=== PATIENT | male | born 2000 | race Caucasian/White ===

== ENCOUNTER 2022-05-12 15:11 | Observation (INO) | payer BC, SELFPAY ==
[2022-05-12 15:14] VITALS: BP 133/78; PULSE 81; RESP 18; TEMP 36.6; O2SAT 100
--- NOTE | 2022-05-12 15:30 | DI.CT_ITS ---
Exam(s) CT CHEST/ABD/PEL W EXAM: CT CHEST/ABD/PEL W CLINICAL HISTORY: trauma, ski accident, right sided chest abd pain. TECHNIQUE: Imaging Protocol: Axial computed tomography images with coronal and sagittal reformatted images were created and reviewed CONTRAST MATERIAL: Intravenous: Omnipaque 350 Contrast volume:100 ml Oral: no COMPARISON: No exams were available for comparison FINDINGS: CHEST: Tracheobronchial tree: Patent where visualized. Mediastinum and Aubree: No dominant adenopathy or fluid collection. Pulmonary parenchyma: No consolidation or dominant measurable mass. Pleura: No effusion or pneumothorax. Lymph nodes: Within normal limits. Aorta: Thoracic portion non-dilated. Heart: Normal size. Bones: Unremarkable for age. No lytic or blastic lesions. No rib or spine fracture visible. ABDOMEN: Liver: Normal density. No measurable mass. No visible laceration. Gallbladder and biliary tract: No radiodense calculus or dilation. Pancreas: Normal density, no abnormal calcifications or inflammatory process. Spleen: Normal. Kidneys: Normal size, contour and axis. No radiodense stones or obstructive uropathy. Small cyst rig ht kidney. No suspicious masses seen. No laceration visible. Adrenal glands: No masses seen. Aorta: Abdominal portion non-dilated. Lymph nodes: Within normal limits. Soft tissues: Unremarkable. Bones: Nondisplaced right transverse process fracture L3. Schmorl's nodes at multiple levels. PELVIS: Bladder: Symmetric distention, no gross wall thickening. Bowel: No obstruction or bowel wall thickening. Increased stool in rectum. Appendix normal. Peritoneal cavity: No ascites, collection or mesenteric inflammatory response. Bones: Unremarkable for age.. Reproductive organs: Within normal limits. IMPRESSION: Nondisplaced right transverse process fracture L3. No additional fractures. No evidence rib fractur e or pneumothorax. No internal organ injury visible. RADIATION DOSE DELIVERED: 1,566.43mGy.cm Total DLP DATA REPOSITORY: All CT scans at this facility are submitted to the National Radiology Data Registry (NRDR) Dose Index Registry (DIR) with the [employer] (A[employer]). RADIATION OPTIMIZATION: All CT scans at this facility use at least one of these dose optimization te chniques: automated exposure control; mA and/or kV adjustment per patient size (includes targeted exa ms where dose is matched to clinical indication); or iterative reconstruction.
[2022-05-12 15:41] LABS: Bilirubin Negative (Negative); Blood Negative (Negative); Clarity Clear (Clear); Glucose Negative (Negative); Ketones Negative (Negative); Leukocyte Esterase Negative (Negative); Nitrite Negative (Negative); Specific Gravity 1.025 (1.005-1.025); Urobilinogen 0.2 EU/dL (Up TO 0.2)
--- NOTE | 2022-05-12 15:41 | ED.GENADUL_ITS ---
Discharge Plan Disposition Patient Disposition: Admit to [facility] Condition: Stable Discharge Details Chief Complaint: Trauma Clinical Impression: Blunt trauma to abdomen, Closed fracture of spinous process of lumbar vertebra, Abnormal renal finding Primary Care Provider: None,None ED Provider: Colt Horne Home Meds and New Rx's Prescriptions: No Action No Known Home Meds Medical Decision Making 21-year-old male fell at skiing, slid on his side into a tree line, struck a tree on his right side with right chest and right abdomen, abrasion overlying right hip/right lower quadrant, abdomen soft nontender nondistended, bedside FAST exam negative for free intraperitoneal fluid; however given mechanism of injury will obtain CT chest abdomen pelvis to assess for any thoracic or abdominal trauma. Obtain basic labs. At this time patient does not want any analgesia. Patient is hemodynamically stable alert and oriented GCS 15. Disposition pending labs and results 20: 13 patient was comfortably hemodynamically stable. CT chest abdomen pelvis showing L3's spinous process fracture, possible renal cyst versus small parenchymal lacerations to right kidney, no surrounding free fluid or stranding, patient is nonperitoneal hemodynamically stable. Discussed case with Dr. Kim of trauma surgery at [facility] who reviewed image and case with me believes p atient is stable to be observed here at our facility with repeat H&H and UA in the morning if signs of hemorrhage or hematuria to rediscuss transfer to trauma center. Discussed case with hospitalist while as well as general surgeon Dr. Mosley who has accepted patient for observation. HPI General Date/Time Provider Initiated Documentation: 05/12/22 15:25 . HPI Narrative: 21-year-old male helmeted ski year fell onto his side slid over a ridge into a tree line, struck his chest and right abdomen on a tree, no loss of consciousness. Pain to chest wall and right abdomen. Related Data Home Medications Medication Instructions Recorded Confirmed Unknown [No Known Home Meds] 05/12/22 05/12/22 Allergies Allergy/AdvReac Type Severity Reaction Status Date / Time No Known Allergies Allergy Unverified 05/12/22 15:16 General Stated Complaint: Trauma JEFFERSON: 2 Review of Systems Narrative: Review of Systems Constitutional: negative Eyes: negative ENT: negative Cardiovascular: negative Respiratory: negative Gastrointestinal: Abdominal pain : negative Musculoskeletal: Chest wall pain Skin: negative Neurologic: negative Psych: negative PFSH All Active Problems (Updated 05/12/22 @ 20:16 by Colt Horne MD) Blunt trauma to abdomen (Acute) Closed fracture of spinous process of lumbar vertebra (Acute) Abnormal renal finding (Acute) Social History Smoking/Tobacco Use Status: Never Smoking risk assessment performed?: Yes Drug use: Never Substance use type: does not use Do you feel safe at home: Yes Do you feel safe in your relationship?: Yes Exam Narrative Exam Narrative: Physical Examination General: alert, awake, cooperative, resting comfortably, no acute distress HEENT: normocephalic, atraumatic; PERRL, EOM intact, conjunctiva normal; no nasal discharge; moist mucous membranes, oral and pharyngeal mucosa normal, tolerating secretions Neck: supple, trachea midline; full ROM Chest: normal to inspection Respiratory: normal respiratory effort, speaking in full sentences, clear to auscultation, no wheezing, rales or rhonchi Cardiac: regular rate, regular rhythm, S1S2 intact, no murmurs rubs or gallops GI: abdomen soft, non-tender, non-distended; no palpable mass or hepatosple nomegaly; superficial abrasion right hip/right lower quadrant Skin: no lesions, rashes or trauma appreciated Neuro: AAOx3, normal speech, moving all extremities Extremities: Moving all extremities no signs of trauma or deformity, pelvis stable Psych: Appropriate mood and affect Course Vital Signs Vital signs: Vital Signs Temperature 36.6 C 05/12/22 15:14 Pulse 81 05/12/22 15:14 Respiratory Rate 18 05/12/22 15:14 Blood Pressure 133/78 05/12/22 15:14 Pulse Oximetry 100 05/12/22 15:14 Temperature 36.6 C 05/12/22 15:14 Temperature Source Temporal Artery Scan 05/12/22 15:14 Pulse 81 05/12/22 15:14 Respiratory Rate 18 05/12/22 15:14 Respiratory Effort 05/12/22 15:27 Blood Pressure 133/78 05/12/22 15:14 Blood Pressure Position Sitting 05/12/22 15:14 Pulse Oximetry 100 05/12/22 15:14 Oxygen Delivery Method Room Air 05/12/22 15:14 Oxygen Flow Rate 0 05/12/22 15:14 Pain Level 7 05/12/22 15:14 PAWSS Have you Been Recently Intoxicated or Drunk Within the Last 30 days?: No Have you Ever Experienced Previous Episodes of Alcohol Withdrawal?: No Have you ever Experienced Withdrawal Seizures?: No Have you ever Experienced Delirium Tremens(DT)s?: No Have you ever undergone Alcohol Rehabilitation Treatment (i.e, inpt ot outpatient treatment programs)?: No Have you ever Experienced Blackouts?: No Have you ever Combined Alcohol with other Downers within the last 90 days?: No Have you ever Combined Alcohol with any other Substance of Abuse during the last 90 days?: No Positive Blood Alcohol level on Presentation? [PCS.BAL]: No Evidence of Increased Autonomic Activity (i.e. HR>120, tremor, sweating, agitation, nausea)?: No Result: 0
[2022-05-12 15:53] LABS: Epithelial Cells Rare HPF (Negative); RBC 0-2 HPF (0-2); WBC 0-2 HPF (0-5)
[2022-05-12 15:54] LABS: Bacteria Negative HPF (Negative); C & S Indicated? No; Casts Negative LPF (Negative); Crystals Negative HPF (Negative); Mucus Trace (Negative)
[2022-05-12 16:00] LABS: Abs Immature Grans 0.08 10^3/uL (0.0-0.06); Absolute Basophil Count 0.03 10^3/uL (0.0-0.2); Absolute Lymphocyte Count 0.81 10^3/uL (1.2-3.4); Absolute Monocyte Count 0.95 10^3/uL (0.1-0.8); Basophils % 0.2; Eosinophils % 0.2; HCT 47.3 % (40.0-50.0); HGB 16.1 g/dL (13.5-17.5); Immature Grans % 0.6; Lymphocytes % 6.4; MCH 30.4 pg (27.0-33.0); MCV 89 fL (80-95); MPV 12.1 fL (8.0-11.0); Monocytes % 7.5; Neutrophils % 85.1; Platelet Count 191 10^3/uL (130-400); RBC 5.29 10^6/uL (4.36-5.78); RDW 12.5 % (11.8-14.1); WBC 12.69 10^3/uL (4.4-10.8)
[2022-05-12 16:01] LABS: Absolute Eosinophil Count 0.03 10^3/uL (0.0-0.7)
[2022-05-12 16:13] LABS: ALT 30 U/L (16-63); AST 26 U/L (15-37); Albumin 4.5 g/dL (3.4-5.0); Alkaline Phosphatase 71 U/L (46-116); Anion Gap 5.5 mmol/L (3-11); BUN 16 mg/dL (7-18); Bilirubin, Total 0.5 mg/dL (0.2-1.0); CO2 33.5 mmol/L (21.0-32.0); CREATININE 1.2 mg/dL (0.70-1.30); Calcium 9.2 mg/dL (8.5-10.1); Chloride 105 mmol/L (98-107); Estimated GFR 87.69 (mL/min/1.73m2); Glucose 102 mg/dL (74-106); Potassium 3.9 mmol/L (3.5-5.1); Sodium 144 mmol/L (136-145); Total Protein 7.8 g/dL (6.4-8.2)
[2022-05-12] MEDS: Omnipaque 350 MG/ML 100 ML BTL IJ (16:13)
[2022-05-12] MEDS: Normal Saline - Diluent 50 ML VIAL IJ (16:13)
[2022-05-12] MEDS: Normal Saline Flush 10 ML SYR IVP ×2 (16:14→22:01)
[2022-05-12 17:13] VITALS: BP 135/72; PULSE 81; RESP 19; TEMP 37.1; O2SAT 100
--- NOTE | 2022-05-12 17:17 | DI.VRAD_ITS ---
Addendum created by Ren Castro MD on 05/12/2022 5:40:51 PM EST: THIS REPORT CONTAINS FINDINGS THAT MAY BE CRITICAL TO PATIENT CARE. The findings were verbally communicated via telephone conference with Colt Horne at 5:40 PM EST on 05/12/2022. The findings were acknowledged and understood. Initial report created on 05/12/2022 5:16:32 PM EST: PROCEDURE INFORMATION: Exam: CT Chest With Contrast; Diagnostic Exam date and time: 05/12/2022 4:06 PM Age: 21 years old Clinical indication: Other: Trauma, skii accident, right sided chest pain TECHNIQUE: Imaging protocol: Diagnostic computed tomography of the chest with contrast. Radiation optimization: All CT scans at this facility use at least one of these dose optimization techniques: automated exposure control; mA and/or kV adjustment per patient size (includes targeted exams where dose is matched to clinical indication); or iterative reconstruction. Contrast material: OMNIPAQUE 350; Contrast volume: 100 ml; Contrast route: INTRAVENOUS (IV); COMPARISON: No relevant prior studies available. FINDINGS: Lungs: No the evidence of pulmonary contusion. There is no evidence of focal pulmonary consolidation. No evidence of pulmonary parenchymal inflammatory changes. There is no evidence of pulmonary masses. Pleural spaces: There is no evidence of pneumothorax. There are no pleural effusions present. Heart: The cardiac structures are normal. Mediastinal space: The mediastinal structures are normal, no evidence of mediastinal hematoma. Lymph nodes: There is no evidence of lymphadenopathy. Vasculature: The pulmonary arteries are normal in caliber. No evidence of acute pulmonary embolism. The aorta and great vessels appear normal. No evidence of aortic dissection. No evidence of contrast extravasation to suggest major vascular injury. Intraperitoneal space: Please see abdominal CT. Bones/joints: The spine, sternum, ribs, and pectoral girdles show no evidence of acute abnormality. Soft tissues: There are no soft tissue masses or fluid collections. IMPRESSION: 1. No evidence of acute trauma to the thorax. 2. No evidence of pulmonary embolism. 3. No active cardiopulmonary disease. PROCEDURE INFORMATION: Exam: CT Abdomen And Pelvis With Contrast Exam date and time: 05/12/2022 4:06 PM Age: 21 years old Clinical indication: Other: Trauma, skii accident, right sided chest pain TECHNIQUE: Imaging protocol: Computed tomography of the abdomen and pelvis with contrast. Radiation optimization: All CT scans at this facility use at least one of these dose optimization techniques: automated exposure control; mA and/or kV adjustment per patient size (includes targeted exams where dose is matched to clinical indication); or iterative reconstruction. Contrast material: OMNIPAQUE 350; Contrast volume: 100 ml; Contrast route: INTRAVENOUS (IV); COMPARISON: No relevant prior studies available. FINDINGS: Liver: The liver is mildly enlarged at 17 cm. There are no focal liver lesions present. There is no evidence of intrahepatic or extrahepatic biliary ductal dilation. No evidence of laceration of the liver. Gallbladder and bile ducts: The gallbladder is normal. There is no cholelitiasis, wall thickening or pericholecystic fluid to suggest cholecystitis. Pancreas: The pancreas is normal. Spleen: The spleen is enlarged but otherwise normal. No evidence of laceration of the spleen. Adrenal glands: The adrenal glands are normal. Kidneys and ureters: There is a 10 x 22 mm right renal cyst present within the lower pole the right kidney. A small grade 1 intraparenchymal renal laceration cannot be totally excluded but is less likely. There is a 5 mm cyst present within the upper to mid pole of the left kidney. A tiny grade 1 intraparenchymal renal laceration cannot be totally excluded but is less likely. The kidneys are otherwise normal. Stomach and bowel: No evidence of duodenal hematoma. There is no evidence of intestinal obstruction. No diverticulosis is present. There is mild increased colonic fecal content. The colon is nondilated. These findings suggest a mild degree of constipation. Clinical correlation recommended. Appendix: A normal appendix is identified. There is no evidence of distention or periappendiceal inflammation to suggest appendicitis. Intraperitoneal space: No evidence of free fluid within the abdomen to suggest hemoperitoneum. There is no free intraperitoneal air. There are no soft tissue masses or fluid collections. No evidence of retroperitoneal hematoma. Vasculature: The aorta is normal without evidence of significant atherosclerosis or aneurysmal disease. No evidence of arterial dissection. No evidence of extravasation of contrast to suggest major vascular injury. The peripheral arterial vascular system visualized is otherwise unremarkable. The portal venous system visualized is unremarkable. The venous system visualized is unremarkable. Lymph nodes: There is no evidence of lymphadenopathy. Urinary bladder: The bladder is normal. Reproductive: The prostate is unremarkable for age. Bones/joints: There is a fracture of the right transverse process of the 3rd lumbar vertebral body. No other acute spinal fractures are identified. There are probable chronic Schmorl's node like endplate compressions involving T10, T11, T12, L1, L2 and L3. Soft tissues: The extra-abdominal soft tissues are normal. There appears to be an intramuscular contusion/hematoma involving the right external and internal oblique muscles. IMPRESSION: 1. There is a 10 x 22 mm right renal cyst present within the lower pole the right kidney. A small grade 1 intraparenchymal renal laceration cannot be totally excluded but is less likely. 2. There is a 5 mm cyst present within the upper to mid pole of the left kidney. A tiny grade 1 intraparenchymal renal laceration cannot be totally excluded but is less likely. 3. There appears to be an intramuscular contusion/hematoma involving the right external and internal oblique muscles. 4. There is a fracture of the right transverse process of the 3rd lumbar vertebral body. No other acute spinal fractures are identified. 5. There are probable chronic Schmorl's node like endplate compressions involving T10, T11, T12, L1, L2 and L3. 6. Hepatosplenomegaly. Dictated and Authenticated by: Ren Castro MD. Ordering:JORDAN Gregory MD
[2022-05-12 19:48] VITALS: BP 109/77; PULSE 91; RESP 18; TEMP 36.9; O2SAT 99
--- NOTE | 2022-05-12 20:22 | HPE_ITS ---
Date of service: 05/12/22 Time of Service: 20:23 Assessment and Plan Assessment and plan (1) Blunt trauma to abdomen: Status: Acute Assessment and plan: Treat pain Repeat CBC in the morning Reassess for hematuria (2) Closed fracture of spinous process of lumbar vertebra: Status: Acute Assessment and plan: Treat pain History of Present Illness History of Present Illness Chief Complaint: right back pain Narrative: Devendra is a 21 year old male who was skiing when he struck a tree. He felt pain in his lower back. He went to the emergency department. Work-up demonstrated a right-sided L3 transverse process fracture, as well as right sided renal cysts, that raise the possibility of a blunt renal injury as well. He had no evidence of hematuria. He was admitted for observation Review of Systems Constitutional Constitutional: Reports body ache(s), Denies fever(s) and Denies weakness Eyes Eyes: Reports system reviewed and no additional complaints, except as documented ENT Ears, Nose, Mouth, and Throat: Reports system reviewed and no additional complaints, except as documented Cardiovascular Cardiovascular: Denies chest pain and Denies dyspnea Respiratory Respiratory: Denies chest congestion, Denies cough and Denies dyspnea Gastrointestinal Gastrointestinal: Denies abdominal pain, Denies nausea and Denies vomiting Genitourinary Genitourinary: Denies hematuria, Denies difficulty urinating, Reports flank pain (Right), Denies urinary hesitancy, Denies urinary incontinence and Denies urinary urgency Musculoskeletal Musculoskeletal: Reports back pain, Denies numbness, Denies radiating pain into limb and Reports stiffness Neurologic Neurologic: Reports system reviewed and no additional complaints, except as documented, Denies numbness and Denies weakness Psychiatric Psychiatric: Reports system reviewed and no additional complaints, except as documented Hematologic/Lymphatic Hematologic/Lymphatic: Denies easy bleeding and Denies easy bruising PFSH All Active Problems Blunt trauma to abdomen (Acute) Closed fracture of spinous process of lumbar vertebra (Acute) Abnormal renal finding (Acute) Social History Smoking/Tobacco Use Status: Never Smoking risk assessment performed?: Yes Drug use: Never Substance use type: does not use Do you feel safe at home: Yes Do you feel safe in your relationship?: Yes Meds Allergies and Home Medications Allergies Allergy/AdvReac Type Severity Reaction Status Date / Time No Known Allergies Allergy Unverified 05/12/22 15:16 Home Medications Medication Instructions Recorded Confirmed Type Unknown [No Known Home Meds] 05/12/22 05/12/22 History Exam Const General: cooperative, healthy appearing and comfortable [facility] Head: normal to inspection, normocephalic and atraumatic Eyes General: appearance normal, both eyes and all related structures Alignment and Position: alignment normal Conjunctivae: conjunctivae normal Neck Neck: normal visual inspection, full ROM, trachea midline, supple and nontender Chest Chest: normal inspection of the chest and no crepitus Resp Effort & Inspection: normal respiratory effort and able to speak in complete sentences Auscultation: clear to auscultation bilaterally Cardio Jugular venous pressure: no JVD Rate: regular rate Rhythm: regular rhythm Heart Sounds: S1 normal and S2 normal GI Inspection: normal to inspection and non-distended Palpation: soft, no guarding and nontender Percussion: normal to percussion Auscultation: normal bowel sounds Back/Spine/Pelvis Thoracic/Lumbar Spine: thoracic and lumbar spine normal to inspection, No thoraco-lumbar ROM normal (Lower back pain), No thoraco-lumbar spasm and lumbar spinal tenderness Pelvis: no pain with anterior-posterior compression Neuro General: patient alert, patient awake and patient oriented x3 Cognition: normal cognition Extrem General: normal to inspection and full ROM Right lower extremity: full ROM; no edema Left lower extremity: full ROM; no edema Results Imaging Abdomen CT scan report/results: report reviewed and image reviewed CT scan - chest: report reviewed and image reviewed CT scan - pelvis: report reviewed and image reviewed Labs Result diagrams: 05/13/22 06:06 05/12/22 15:30 Labs: Laboratory Results - last 24 hr 05/12/22 05/12/22 05/12/22 15:19 15:30 15:30 WBC 12.69 H RBC 5.29 Hgb 16.1 Hct 47.3 MCV 89 MCH 30.4 MCHC 34.0 RDW 12.5 Plt Count 191 MPV 12.1 H Immature Gran % 0.6 Neutrophils % 85.1 Lymphocytes % 6.4 Monocytes % 7.5 Eosinophils % 0.2 Basophils % 0.2 Nucleated RBC % 0.0 Absolute Neutrophils 10.80 H Absolute Lymphocytes 0.81 L Absolute Monocytes 0.95 H Absolute Eosinophils 0.03 Absolute Basophils 0.03 Sodium 144 Potassium 3.9 Chloride 105 Carbon Dioxide 33.5 H Anion Gap 5.5 BUN 16 Creatinine 1.2 Est GFR (CKD-EPI 2020) 87.69 Glucose 102 Calcium 9.2 Total Bilirubin 0.5 AST 26 ALT 30 Alkaline Phosphatase 71 Total Protein 7.8 Albumin 4.5 Urine Color Yellow Urine Clarity Clear Urine pH 7.0 Ur Specific [place] 1.025 Urine Protein 30 H Urine Ketones Negative Urine Blood Negative Urine Nitrite Negative Urine Bilirubin Negative Urine Urobilinogen 0.2 Ur Leukocyte Esterase Negative Urine RBC 0-2 Urine WBC 0-2 Ur Epithelial Cells Rare Urine Crystals Negative Urine Bacteria Negative Urine Casts Negative Urine Mucus Trace Ur Culture Indicated? No Urine Glucose Negative Last Vital Signs Temp 98.4 F 05/12/22 19:48 Pulse 91 H 05/12/22 19:48 Resp 18 05/12/22 19:48 BP 109/77 05/12/22 19:48 Pulse Ox 99 05/12/22 19:48 PAWSS Have you Been Recently Intoxicated or Drunk Within the Last 30 days?: No Have you Ever Experienced Previous Episodes of Alcohol Withdrawal?: No Have you ever Experienced Withdrawal Seizures?: No Have you ever Experienced Delirium Tremens(DT)s?: No Have you ever undergone Alcohol Rehabilitation Treatment (i.e, inpt ot outpatient treatment programs)?: No Have you ever Experienced Blackouts?: No Have you ever Combined Alcohol with other Downers within the last 90 days?: No Have you ever Combined Alcohol with any other Substance of Abuse during the last 90 days?: No Positive Blood Alcohol level on Presentation? [PCS.BAL]: No Evidence of Increased Autonomic Activity (i.e. HR>120, tremor, sweating, agitation, nausea)?: No Result: 0
[2022-05-12 21:24] VITALS: BP 139/69; PULSE 82; RESP 20; O2SAT 97
[2022-05-12 21:24] LABS: Source Nasal/Nares
[2022-05-12] MEDS: Acetaminophen 325 MG TAB 650 MG PO (21:50)
[2022-05-12] MEDS: Lidocaine 5% Patch 1 PATCH TP (21:51)
[2022-05-12 21:56] LABS: COVID-19 PCR Negative (Negative)
[2022-05-12] MEDS: Enoxaparin 40 MG/0.4 ML SYR SC (22:02)
[2022-05-12 22:05] VITALS: BP 138/82; PULSE 93; RESP 18; TEMP 36.8; O2SAT 93
[2022-05-13 05:31] VITALS: BP 134/75; PULSE 75; RESP 16; TEMP 36.7; O2SAT 99
[2022-05-13 06:27] LABS: Abs Immature Grans 0.03 10^3/uL (0.0-0.06); Absolute Basophil Count 0.03 10^3/uL (0.0-0.2); Absolute Eosinophil Count 0.05 10^3/uL (0.0-0.7); Absolute Lymphocyte Count 2.14 10^3/uL (1.2-3.4); Absolute Monocyte Count 0.92 10^3/uL (0.1-0.8); Absolute Neutrophil Count 5.09 10^3/uL (1.2-6.7); Basophils % 0.4; Eosinophils % 0.6; HCT 47.1 % (40.0-50.0); HGB 16.5 g/dL (13.5-17.5); Immature Grans % 0.4; Lymphocytes % 25.9; MCH 30.8 pg (27.0-33.0); MCV 88 fL (80-95); MPV 11.9 fL (8.0-11.0); Monocytes % 11.1; Neutrophils % 61.6; Platelet Count 189 10^3/uL (130-400); RBC 5.35 10^6/uL (4.36-5.78); RDW 12.8 % (11.8-14.1); RDW-SD 41.1 fL; WBC 8.26 10^3/uL (4.4-10.8)
[2022-05-13 07:31] VITALS: BP 125/73; PULSE 73; RESP 16; TEMP 36.5; O2SAT 97
--- NOTE | 2022-05-13 08:55 | W.PM.DS.N ---
Date of service: 05/13/22 Time of Service: 08:56 DS: Diagnosis Discharge Diagnosis (1) Blunt trauma to abdomen: Status: Acute Asessment and Plan: You sustained a right sided vertebral transverse process fracture. -follow discharge instructions You have either a Grade 1 kidney injury or a simple renal cyst -neither condition requires any specific treatment. Garde 1 renal injuries heal on their own with extremely low complication rates and renal cysts are not dangerous and require no changes to any of your [facility] healthcare. Discharge Plan Disposition Patient Disposition: Home Condition: Good Discharge Details Reason For Visit: renal trauma Admit Date/Time: 05/12/22 20:19 Admit Provider: Ede Mosley Attending Provider: Ede Mosley Primary Care Provider: None,None Hospital Course Hospital Course: Yovani is a 21 year old male who crashed into a tree while skiing. He underwent torso imaging that demonstrated a right sided L3 transverse process fracture and a possible grade 1 right kidney injury with renal cyst. He did fine overnigth. He had no hematuria. Hgb was normal and stable the following morning. I discharged him home with instructions. Home Meds and New Rx's Prescriptions: No Action No Known Home Meds Discharge Instructions Instructions: Transverse Process Fracture (DC) Additional Instructions: 1. Do not drive, drink alcohol, operate machinery, make critical decisions, or do activities that require coordination or balance for 24 hours. 2. You will experience pain in your lower back for several weeks. Over the counter Tylenol and ibuprofen will help with that discomfort. Topical pain patches (like lidocaine patches) our ointments (like icey hot) can be applied to your lower back. CBD ointment is also safe to use if you find it helpful. 3. You might notice a pink tinge to your urine. That is okay. Give it a few rounds to clear. If it does not clear within 48 hours, contact my office. If you notice blood clots in your urine (like red jello), contact my office for an appointment. 4. You should refrain from vigorous actives (like skiing) until your back is pain free. 5. Always wear a helmet while skiing. 6. You should begin lower back exercise training and active stretching within 1 week. 7. Go directly to the emergency room if you notice any of the following: Develop chills (warm to touch), or if you have a thermometer and your temperature is above 101 Difficulty breathing or difficultly swallowing Persistent vomiting Severe abdominal pain, other than gas cramps Severe chest pain Black, tarry stools Any bleeding ? exceeding one tablespoon 8. Call your physician if the site where your intravenous was started becomes red, swollen, painful, and warm to touch. 9. Your physician has reviewed your pre-procedure medications. Please continue to take those medications as previously ordered. You will be given specific information/education regarding any changes to your medications before leaving. Stand Alone Forms: Nursing Discharge Form Activity:: Activity as Tolerated Equipment/Supplies:: No Equipment Needed Diet:: As Tolerated Discharge Orders Discharge Orders: Discharge Order (Routine); Ordered 05/13/22 Ordered By: Ede Mosley DS: Summary Time Spent with Patient providing and/or coordinating discharge services: Less than 30 minutes Status at Discharge Functional status at discharge: independent ambulation Overall status at discharge: patient is progressing back to baseline Mental Status: mental status grossly normal Speech and Movement: speech and movement normal Mood: congruent mood Affect: normal affect Exam Const General: cooperative, healthy appearing and comfortable Orientation: awake and oriented x3 Eyes General: appearance normal, both eyes and all related structures Conjunctivae: conjunctivae normal Sclera: sclerae normal Neck Neck: normal visual inspection, full ROM, trachea midline, supple and nontender Resp Effort & Inspection: normal respiratory effort and able to speak in complete sentences Cardio Jugular venous pressure: no JVD Rate: regular rate GI Inspection: non-distended Palpation: soft, no guarding, no hernias and nontender Auscultation: normal bowel sounds Back/Spine/Pelvis Thoracic/Lumbar Spine: pain with thoraco-lumbar ROM and lumbar spinal tenderness Skin General skin exam: normal turgor Neuro General: patient alert, patient awake and patient oriented x3 Cognition: normal cognition Extrem Right lower extremity: no edema Left lower extremity: no edema Psych Mental Status: mental status grossly normal Speech and Movement: speech and movement normal Mood: congruent mood Affect: normal affect DS: Data Vitals/I&O Vitals and I&O: Vital Signs Temperature 97.7 F 05/13/22 07:31 Temperature Source Tympanic 05/13/22 07:31 Pulse 73 05/13/22 07:31 Pulse Rhythm Regular 05/12/22 22:06 Respiratory Rate 16 05/13/22 07:31 Respiratory Effort 05/13/22 05:30 Respiratory Depth Normal 05/13/22 05:30 Respiratory Pattern Normal 05/13/22 05:30 Blood Pressure 125/73 05/13/22 07:31 Blood Pressure Position Sitting 05/12/22 15:14 Pulse Oximetry 97 05/13/22 07:31 Oxygen Delivery Method Room Air 05/13/22 07:31 Oxygen Flow Rate 0 05/13/22 07:31 Pain Level 2 05/13/22 07:31 Intake & Output 05/12/22 05/12/22 05/13/22 11:59 23:59 11:59 Output Total 400 / 400 500 / 500 Balance -400 / -400 -500 / -500 Weight 233 lb 11.04 oz Output: Urine 400 / 400 500 / 500 Other: Urine Color Light Charito Straw Urine Appearance Clear Urine Odor Normal Comment 400mls at this time emptied from the patients toilet insert. i did provide him with a urinal at bedside. Void x1 in the toilet. Voiding Methods Toilet Data Completed and Pending Labs on day of discharge: Labs from last 24 hours 05/13/22 05/12/22 05/12/22 06:06 21:15 15:30 WBC 8.26 12.69 H RBC 5.35 5.29 Hgb 16.5 16.1 Hct 47.1 47.3 MCV 88 89 MCH 30.8 30.4 MCHC 35.0 34.0 RDW 12.8 12.5 Plt Count 189 191 MPV 11.9 H 12.1 H Immature Gran % 0.4 0.6 Neutrophils % 61.6 85.1 Lymphocytes % 25.9 6.4 Monocytes % 11.1 7.5 Eosinophils % 0.6 0.2 Basophils % 0.4 0.2 Nucleated RBC % 0.0 0.0 Absolute Neutrophils 5.09 10.80 H Absolute Lymphocytes 2.14 0.81 L Absolute Monocytes 0.92 H 0.95 H Absolute Eosinophils 0.05 0.03 Absolute Basophils 0.03 0.03 Sodium Potassium Chloride Carbon Dioxide Anion Gap BUN Creatinine Est GFR (CKD-EPI 2020) Glucose Calcium Total Bilirubin AST ALT Alkaline Phosphatase Total Protein Albumin Urine Color Urine Clarity Urine pH Ur Specific [place] Urine Protein Urine Ketones Urine Blood Urine Nitrite Urine Bilirubin Urine Urobilinogen Ur Leukocyte Esterase Urine RBC Urine WBC Ur Epithelial Cells Urine Crystals Urine Bacteria Urine Casts Urine Mucus Ur Culture Indicated? Urine Glucose COVID-19 Source Nasal/Nares SARS-CoV-2 (PCR) Negative 05/12/22 05/12/22 15:30 15:19 WBC RBC Hgb Hct MCV MCH MCHC RDW Plt Count MPV Immature Gran % Neutrophils % Lymphocytes % Monocytes % Eosinophils % Basophils % Nucleated RBC % Absolute Neutrophils Absolute Lymphocytes Absolute Monocytes Absolute Eosinophils Absolute Basophils Sodium 144 Potassium 3.9 Chloride 105 Carbon Dioxide 33.5 H Anion Gap 5.5 BUN 16 Creatinine 1.2 Est GFR (CKD-EPI 2020) 87.69 Glucose 102 Calcium 9.2 Total Bilirubin 0.5 AST 26 ALT 30 Alkaline Phosphatase 71 Total Protein 7.8 Albumin 4.5 Urine Color Yellow Urine Clarity Clear Urine pH 7.0 Ur Specific [place] 1.025 Urine Protein 30 H Urine Ketones Negative Urine Blood Negative Urine Nitrite Negative Urine Bilirubin Negative Urine Urobilinogen 0.2 Ur Leukocyte Esterase Negative Urine RBC 0-2 Urine WBC 0-2 Ur Epithelial Cells Rare Urine Crystals Negative Urine Bacteria Negative Urine Casts Negative Urine Mucus Trace Ur Culture Indicated? No Urine Glucose Negative COVID-19 Source SARS-CoV-2 (PCR) PFSH All Active Problems Blunt trauma to abdomen (Acute) Closed fracture of spinous process of lumbar vertebra (Acute) Abnormal renal finding (Acute) Social History Smoking/Tobacco Use Status: Never Smoking risk assessment performed?: Yes Drug use: Never Substance use type: does not use Do you feel safe at home: Yes Do you feel safe in your relationship?: Yes
[2022-05-13] MEDS: Acetaminophen 325 MG TAB 650 MG PO (10:56)
[2022-05-13] MEDS: Patch Removal 1 EACH TP (10:56)
== END 2022-05-13 11:33 | disposition home or self-care (01) ==
LOC: ER 20:29 → MS 21:24 → DSU 05-13 18:16 → MS 05-13 18:17 → DSU 05-15 11:33 → MS 05-15 11:33
PROVIDERS: Admitting Provider Surgery; Emergency Provider Emergency Medicine; Visit Provider Surgery
DX: S32.038A Other fracture of third lumbar vertebra, initial encounter for closed fracture (principal); S39.81XA Other specified injuries of abdomen, initial encounter; N28.1 Cyst of kidney, acquired; Y93.23 Activity, snow (alpine) (downhill) skiing, snowboarding, sledding, tobogganing and snow tubing; Y92.838 Other recreation area as the place of occurrence of the external cause; V00.321A Fall from snow-skis, initial encounter
CPT/HCPCS: 36415; 74177; 80053; 87635; 96372; 99284; 99285; J1650; 71260; 81003; 81015; 85025; G0378; J3490